=== PATIENT | female | born 1980 | race Caucasian/White ===

== ENCOUNTER → 2016-08-20 | Outpatient (CLI) | payer MEDICARE, MEDICAID ==
[~2016-08-20] MED LIST: /ONDA4TA OR; /SUCR1TA OR; ACET65TA OR; AMOX500C OR; ATIV0.5T OR; DELTASONE PO; DEPA1TAB3 PO; EFFE37.527 OR; FLUC10TA OR; HYDR25T PO; Methylprednisolone; PAXI10TA2 PO; PERC5TAB6 PO; PRED10TA2 OR; PRILOSEC PO; TRAZ50TA2 PO; VALI2TAB OR; VALT500T OR; VENTAER INH; VENTOLIN INH; ZOMI5TAB OR; ZONI100C2 PO; [UNRECOGNIZED DRUG - REMARK]; flagyl PO; protonix OR; trazadone OR
== END ==
LOC: M PAIN 13:20
PROVIDERS: ATTEND Nurse Practitioner Family
DX: Z09 Encounter for follow-up examination after completed treatment for conditions other than malignant neoplasm (principal); G89.21 Chronic pain due to trauma; G56.92 Unspecified mononeuropathy of left upper limb; F43.10 Post-traumatic stress disorder, unspecified; G40.919 Epilepsy, unspecified, intractable, without status epilepticus; F31.9 Bipolar disorder, unspecified; G43.909 Migraine, unspecified, not intractable, without status migrainosus; Z88.1 Allergy status to other antibiotic agents; Z88.5 Allergy status to narcotic agent; Z88.6 Allergy status to analgesic agent; Z91.09 Other allergy status, other than to drugs and biological substances; Z91.040 Latex allergy status; Z91.041 Radiographic dye allergy status; Z91.013 Allergy to seafood; Z79.891 Long term (current) use of opiate analgesic; Z79.899 Other long term (current) drug therapy

== ENCOUNTER → 2016-09-23 | Outpatient (CLI) | payer MEDICARE, MEDICAID ==
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
== END ==
LOC: M PAIN 10:20
PROVIDERS: ATTEND Anesthesiology
DX: Z09 Encounter for follow-up examination after completed treatment for conditions other than malignant neoplasm (principal); G90.512 Complex regional pain syndrome I of left upper limb; M79.2 Neuralgia and neuritis, unspecified; G89.29 Other chronic pain; M25.542 Pain in joints of left hand; F43.10 Post-traumatic stress disorder, unspecified; G40.919 Epilepsy, unspecified, intractable, without status epilepticus; F31.9 Bipolar disorder, unspecified; G43.909 Migraine, unspecified, not intractable, without status migrainosus; Z88.5 Allergy status to narcotic agent; Z88.1 Allergy status to other antibiotic agents; Z88.6 Allergy status to analgesic agent; Z91.040 Latex allergy status; Z88.8 Allergy status to other drugs, medicaments and biological substances; Z91.041 Radiographic dye allergy status; Z91.013 Allergy to seafood; Z79.891 Long term (current) use of opiate analgesic; Z79.899 Other long term (current) drug therapy; Z86.19 Personal history of other infectious and parasitic diseases; Z87.81 Personal history of (healed) traumatic fracture

== ENCOUNTER → 2016-10-28 | Outpatient (CLI) | payer MEDICARE, MEDICAID ==
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
== END | disposition home or self-care (01) ==
LOC: M PAIN 10:40
PROVIDERS: ATTEND Nurse Practitioner Family
DX: G89.29 Other chronic pain (principal); M79.2 Neuralgia and neuritis, unspecified; F43.10 Post-traumatic stress disorder, unspecified; F31.9 Bipolar disorder, unspecified; G43.909 Migraine, unspecified, not intractable, without status migrainosus; Z87.81 Personal history of (healed) traumatic fracture; Z79.899 Other long term (current) drug therapy; Z88.1 Allergy status to other antibiotic agents; Z88.5 Allergy status to narcotic agent; Z88.8 Allergy status to other drugs, medicaments and biological substances; Z91.040 Latex allergy status; Z91.041 Radiographic dye allergy status; Z91.013 Allergy to seafood

== ENCOUNTER → 2016-12-22 | Outpatient (CLI) | payer MEDICARE, MEDICAID ==
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
== END | disposition home or self-care (01) ==
LOC: M PAIN 11:00
PROVIDERS: ATTEND Nurse Practitioner Family
DX: G89.29 Other chronic pain (principal); M79.2 Neuralgia and neuritis, unspecified; F43.10 Post-traumatic stress disorder, unspecified; R56.9 Unspecified convulsions; F31.9 Bipolar disorder, unspecified; G43.909 Migraine, unspecified, not intractable, without status migrainosus; B02.9 Zoster without complications; Z79.899 Other long term (current) drug therapy; Z88.1 Allergy status to other antibiotic agents; Z88.5 Allergy status to narcotic agent; Z88.8 Allergy status to other drugs, medicaments and biological substances; Z91.040 Latex allergy status; Z91.041 Radiographic dye allergy status; Z91.013 Allergy to seafood

== ENCOUNTER → 2017-01-18 | Outpatient (REF) | payer MEDICARE, MEDICAID ==
[2017-01-18 19:03] LABS: ALBUMIN 3.6 GM/DL (3.2-5.2); ALBUMIN/GLOBULIN RATIO 1.24 (1.00-1.93); ALKALINE PHOSPHATASE 53 U/L (45-117); ALT/SGPT 17 U/L (12-78); ANION GAP 6 MEQ/L (8-16); AST/SGOT 12 U/L (15-37); BILIRUBIN,TOTAL 0.5 MG/DL (0.2-1.0); BLOOD UREA NITROGEN 14 MG/DL (7-18); CALCIUM LEVEL 8.5 MG/DL (8.5-10.1); CARBON DIOXIDE LEVEL 26 MEQ/L (21-32); CHLORIDE LEVEL 107 MEQ/L (98-107); CREATININE FOR GFR 0.84 MG/DL (0.55-1.02); FERRITIN 66 NG/ML (8-252); GLOMERULAR FILTRATION RATE > 60.0 (>60); GLUCOSE, FASTING 80 MG/DL (70-105); POTASSIUM SERUM 4.2 MEQ/L (3.5-5.1); SODIUM LEVEL 139 MEQ/L (136-145); TOTAL PROTEIN 6.5 GM/DL (6.4-8.2)
[2017-01-18 19:32] LABS: FOLATE 13.5 NG/ML (>5.4); VITAMIN B12 LEVEL 489 PG/ML (247-911)
[2017-01-18 19:48] LABS: BASO % 0.6 % (0.0-1.0); EOS # 0.1 K/mm3 (0.0-0.50); EOS % 2.1 % (0.0-3.0); LYMPH % 34.8 % (24.0-44.0); MEAN CORPUSCULAR HEMOGLOBIN 31.4 pg (27.0-33.0); MEAN CORPUSCULAR HGB CONC 33.4 g/dl (32.0-36.5); MEAN CORPUSCULAR VOLUME 94.1 fl (80.0-96.0); MONO # 0.5 K/mm3 (0.0-0.8); MONO % 8.9 % (0.0-5.0); NEUTROPHILS # 2.9 K/mm3 (1.8-7.7); NEUTROPHILS % 52.4 % (36.0-66.0); RED CELL DISTRIBUTION WIDTH 12.2 % (11.5-14.5); WHITE BLOOD COUNT 5.6 K/mm3 (4.0-10.0)
[2017-01-19 14:08] LABS: ALBUMIN 4.11 GM/DL (3.29-5.55); ALBUMIN % 63.3 % (55.8-66.1); GAMMA GLOBULIN % 14.7 % (11.1-18.8)
[2017-01-21 01:12] LABS: Lyme Disease IgG/IgM Antibodie <0.91 ISR (0.00-0.90); Lyme Disease IgM Ab Quantitati <0.80 index (0.00-0.79)
== END ==
LOC: M LABNEURO 17:40
PROVIDERS: ATTEND Physician Assistant Medical
DX: R53.83 Other fatigue (principal)

== ENCOUNTER 2020-12-28 20:49 | Emergency (ER) | payer MEDICARE, MEDICAID ==
[~2020-12-28] VITALS: Ht 162.6 cm; Wt 69.9 kg
[~2020-12-28 20:49] MED LIST changes: -/ONDA4TA OR; -/SUCR1TA OR; +HYDR-3363 PO; -HYDR25T PO; +ONDA-1 OR; +PAXI10TA12 PO; +PERC5TAB12 PO; -PERC5TAB6 PO; +SUCR1TAB56 OR; +ZONI100C17 PO; -ZONI100C2 PO
[2020-12-28] MEDS: NS 1,000 ML IV ONE (21:00)
[2020-12-28 21:18] LABS: BASO % 0.4 % (0.0-1.0); EOS # 0.1 10^3/uL (0.0-0.5); EOS % 1.4 % (0.0-3.0); HEMATOCRIT 35.1 % (36.0-47.0); HEMOGLOBIN 11.5 g/dl (12.0-15.5); LYMPH # 2.1 10^3/uL (1.5-5.0); LYMPH % 25.5 % (24.0-44.0); MEAN CORPUSCULAR HEMOGLOBIN 31.4 pg (27.0-33.0); MEAN CORPUSCULAR HGB CONC 32.8 g/dl (32.0-36.5); MEAN CORPUSCULAR VOLUME 95.9 fl (80.0-96.0); MONO # 0.9 10^3/uL (0.0-0.8); MONO % 10.7 % (2.0-8.0); NEUTROPHILS % 61.5 % (36.0-66.0); PLATELET COUNT, AUTOMATED 163 10^3/uL (150-450); RED BLOOD COUNT 3.66 10^6/uL (4.00-5.40); WHITE BLOOD COUNT 8.1 10^3/uL (4.0-10.0)
[2020-12-28] MEDS: VALPROATE SOD INJ 1,000 MG in D5W 50 ML IV ONE (21:29)
[2020-12-28 21:51] LABS: ALBUMIN 3.2 GM/DL (3.2-5.2); ALT/SGPT 16 U/L (12-78); BILIRUBIN,DIRECT 0.1 MG/DL (0.0-0.2); BILIRUBIN,TOTAL 0.4 MG/DL (0.2-1.0); BLOOD UREA NITROGEN 20 MG/DL (7-18); CALCIUM LEVEL 8.8 MG/DL (8.5-10.1); CARBON DIOXIDE LEVEL 26 MEQ/L (21-32); CHLORIDE LEVEL 108 MEQ/L (98-107); CREATININE FOR GFR 0.74 MG/DL (0.55-1.30); ETHYL ALCOHOL (ETHANOL) < 0.003 % (0.000-0.010); GLOMERULAR FILTRATION RATE > 60.0 (>60); GLUCOSE, FASTING 77 MG/DL (70-100); LIPASE 81 U/L (73-393); POTASSIUM SERUM 3.5 MEQ/L (3.5-5.1); SODIUM LEVEL 142 MEQ/L (136-145)
[2020-12-29] MEDS ORDERED: UNRESOLVED CLARIFICATION ENTRY XX SCH (00:01)
[2020-12-29 01:45] VITALS: BP 120/67
== END 2020-12-29 01:58 | disposition home or self-care (01) ==
LOC: M ED 20:49
DX: R56.9 Unspecified convulsions (principal); Z79.899 Other long term (current) drug therapy; Z88.8 Allergy status to other drugs, medicaments and biological substances; Z88.5 Allergy status to narcotic agent; Z91.040 Latex allergy status; Z86.69 Personal history of other diseases of the nervous system and sense organs

== ENCOUNTER 2021-11-26 20:34 | Inpatient (IN) | payer MEDICAID, MEDICARE ==
[~2021-11-26] VITALS: Ht 167.6 cm; Wt 69.6 kg
[~2021-11-26 20:34] MED LIST changes: -ZONI100C17 PO; +ZONI100C67 PO
[2021-11-26] MEDS ORDERED: ONDANSETRON 4MG/2ML VIAL IV ONE (22:00)
[2021-11-26] MEDS ORDERED: HYDROMORPHONE HCL 0.5 MG/ 0.5 ML SYRINGE (J1170 PER 1) IV PRN (22:00)
[2021-11-26 22:54] LABS: BASO # 0.1 10^3/uL (0.0-0.2); BASO % 0.6 % (0.0-1.0); EOS # 0.1 10^3/uL (0.0-0.5); EOS % 0.7 % (0.0-3.0); HEMATOCRIT 34.1 % (36.0-47.0); HEMOGLOBIN 11.2 g/dl (12.0-15.5); LYMPH # 1.7 10^3/uL (1.5-5.0); LYMPH % 19.7 % (24.0-44.0); MEAN CORPUSCULAR HEMOGLOBIN 31.3 pg (27.0-33.0); MEAN CORPUSCULAR HGB CONC 32.8 g/dl (32.0-36.5); MEAN CORPUSCULAR VOLUME 95.3 fl (80.0-96.0); MONO # 1.1 10^3/uL (0.0-0.8); NEUTROPHILS # 5.7 10^3/uL (1.5-8.5); NEUTROPHILS % 65.9 % (36.0-66.0); PLATELET COUNT, AUTOMATED 199 10^3/uL (150-450); RED BLOOD COUNT 3.58 10^6/uL (4.00-5.40); WHITE BLOOD COUNT 8.7 10^3/uL (4.0-10.0)
[2021-11-26 23:19] LABS: CK-MB VALUE MASS 1.4 NG/ML (<3.6); MB/CK RELATIVE INDEX 1.04 (< OR =4)
[2021-11-26 23:25] LABS: ALBUMIN 3.4 GM/DL (3.2-5.2); ALT/SGPT 20 U/L (12-78); BILIRUBIN,DIRECT 0.1 MG/DL (0.0-0.2); BILIRUBIN,TOTAL 0.3 MG/DL (0.2-1.0); BLOOD UREA NITROGEN 13 MG/DL (7-18); CARBON DIOXIDE LEVEL 29 MEQ/L (21-32); CHLORIDE LEVEL 108 MEQ/L (98-107); CREATININE FOR GFR 0.72 MG/DL (0.55-1.30); GLOMERULAR FILTRATION RATE > 60.0 (>58); GLUCOSE, FASTING 79 MG/DL (70-100); LIPASE 3841 U/L (73-393); POTASSIUM SERUM 4.2 MEQ/L (3.5-5.1); SODIUM LEVEL 143 MEQ/L (136-145); TOTAL PROTEIN 6.2 GM/DL (6.4-8.2)
[2021-11-26 23:46] LABS: CK-MB VALUE MASS < 1.0 NG/ML (<3.6); CPK CREATINE PHOSPHOKINASE 122 U/L (26-192); MB/CK RELATIVE INDEX 0.82 (< OR =4)
[2021-11-26] MEDS ORDERED: NS 1,000 ML IV ONE (23:55)
[2021-11-26] MEDS ORDERED: PROMETHAZINE 25MG/ML 1ML VIAL IV ONE (23:55)
[2021-11-27 00:28] LABS: ETHYL ALCOHOL (ETHANOL) < 0.003 % (0.000-0.010)
[2021-11-27 01:21] LABS: RSV AMPLIFICATION NEGATIVE (NEGATIVE)
[2021-11-27] MEDS ORDERED: LR 1,000 ML IV ONE (03:05)
[2021-11-27] MEDS: LR 1,000 ML IV SCH ×5 (03:05→19:49)
[2021-11-27] MEDS ORDERED: TRAZ-189 PO (03:43)
[2021-11-27] MEDS ORDERED: IPRA0.00 INH (03:43)
[2021-11-27] MEDS ORDERED: GALC120S SC (03:43)
[2021-11-27] MEDS ORDERED: ATIV1TAB10 PO (03:43)
[2021-11-27] MEDS ORDERED: ALBU8.5H INH (03:43)
[2021-11-27] MEDS ORDERED: SYMB80INH INH (03:43)
[2021-11-27] MEDS ORDERED: RIZA5TAB2 PO (03:43)
[2021-11-27] MEDS ORDERED: SUMA6INJ25 SC (03:43)
[2021-11-27] MEDS ORDERED: PANT-23 PO (03:43)
[2021-11-27] MEDS ORDERED: DIVA500T9 PO (03:43)
[2021-11-27] MEDS ORDERED: ONDA-195 PO (03:43)
[2021-11-27] MEDS ORDERED: IPRATROPIUM 0.5MG/ALBUTEROL 2.5MG INH SOL UD 3ML (DUONEB) INH PRN (03:45)
[2021-11-27] MEDS ORDERED: ALBUTEROL 90 MCG/ACT 8GM HFA INHALER INH PRN (03:45)
[2021-11-27] MEDS ORDERED: HOME MED LIST COMPLETE! XX SCH (03:45)
[2021-11-27 04:54] LABS: HEMATOCRIT 31.2 % (36.0-47.0); HEMOGLOBIN 10.3 g/dl (12.0-15.5); MEAN CORPUSCULAR HEMOGLOBIN 32.2 pg (27.0-33.0); MEAN CORPUSCULAR VOLUME 97.5 fl (80.0-96.0); PLATELET COUNT, AUTOMATED 160 10^3/uL (150-450); WHITE BLOOD COUNT 6.3 10^3/uL (4.0-10.0)
[2021-11-27 05:47] LABS: BLOOD UREA NITROGEN 11 MG/DL (7-18); CALCIUM LEVEL 8.3 MG/DL (8.5-10.1); CARBON DIOXIDE LEVEL 31 MEQ/L (21-32); CHLORIDE LEVEL 109 MEQ/L (98-107); CHOLESTEROL LEVEL 124 MG/DL (<200); CHOLESTEROL RISK RATIO 1.907 (<5); CREATININE FOR GFR 0.71 MG/DL (0.55-1.30); GLOMERULAR FILTRATION RATE > 60.0 (>58); GLUCOSE, FASTING 77 MG/DL (70-100); HDL CHOLESTEROL 65 MG/DL (>40); LDL CHOLESTEROL 52 MG/DL (<100); NON-HDL-C 59 MG/DL; POTASSIUM SERUM 3.6 MEQ/L (3.5-5.1); SODIUM LEVEL 144 MEQ/L (136-145); TRIGLYCERIDES LEVEL 37 MG/DL (<150); VALPROIC ACID (DEPAKOTE) 67.8 UG/ML (50.0-100.0)
[2021-11-27] MEDS: HYDROMORPHONE HCL 0.5 MG/ 0.5 ML SYRINGE (J1170 PER 1) IV PRN ×3 (07:04→17:16)
[2021-11-27] MEDS: SYMBICORT 80/4.5MCG INHALER 6GM INH SCH ×2 (08:16→20:00)
[2021-11-27] MEDS: ENOXAPARIN 40MG/0.4ML SYRINGE (J1650 PER 10MG) SC SCH (09:29)
[2021-11-27] MEDS: PANTOPRAZOLE 40MG VIAL IV SCH (09:29)
[2021-11-27] MEDS: VALPROATE SOD INJ 500 MG in D5W 50 ML IV SCH ×2 (09:29→23:03)
[2021-11-27] MEDS: ONDANSETRON 4MG/2ML VIAL IV PRN ×2 (10:20→16:45)
[2021-11-27] MEDS: levETIRAcetam INJection 1,000 MG in D5W 100 ML IV SCH ×2 (10:31→21:22)
[2021-11-27] MEDS: PROMETHAZINE 25MG/ML 1ML VIAL IV PRN (12:27)
[2021-11-27] MEDS ORDERED: HALOPERIDOL 5MG/ML VIAL (J1630 PER 1) IV ONE (15:55)
[2021-11-27 16:10] VITALS: BP 121/68
[2021-11-27] MEDS: SUMAtriptan SUCCINATE 6MG/0.5ML VIAL SC PRN (17:10)
[2021-11-27 22:00] VITALS: BP 120/70
[2021-11-28] MEDS: LR 1,000 ML IV SCH ×7 (00:58→23:05)
[2021-11-28] MEDS: ONDANSETRON 4MG/2ML VIAL IV PRN ×3 (02:46→21:36)
[2021-11-28] MEDS: HYDROMORPHONE HCL 0.5 MG/ 0.5 ML SYRINGE (J1170 PER 1) IV PRN ×2 (04:25→06:57)
[2021-11-28 06:00] VITALS: BP 118/60
[2021-11-28] MEDS: SYMBICORT 80/4.5MCG INHALER 6GM INH SCH ×2 (08:00→19:40)
[2021-11-28] MEDS: PANTOPRAZOLE 40MG VIAL IV SCH (08:51)
[2021-11-28] MEDS: VALPROATE SOD INJ 500 MG in D5W 50 ML IV SCH ×2 (09:29→21:53)
[2021-11-28] MEDS: levETIRAcetam INJection 1,000 MG in D5W 100 ML IV SCH ×2 (10:51→21:34)
[2021-11-28] MEDS: SUMAtriptan SUCCINATE 6MG/0.5ML VIAL SC PRN ×2 (10:51→21:34)
[2021-11-28] MEDS: ENOXAPARIN 40MG/0.4ML SYRINGE (J1650 PER 10MG) SC SCH (10:51)
[2021-11-28] MEDS: LORazepam 2 MG/ML VIAL IV PRN ×2 (11:46→21:36)
[2021-11-28 14:00] VITALS: BP 127/70
[2021-11-28 22:00] VITALS: BP 119/60
[2021-11-29] MEDS: LR 1,000 ML IV SCH (04:42)
[2021-11-29 06:00] VITALS: BP 121/63
[2021-11-29 06:45] LABS: BASO % 0.6 % (0.0-1.0); EOS # 0.1 10^3/uL (0.0-0.5); EOS % 0.9 % (0.0-3.0); HEMATOCRIT 33.6 % (36.0-47.0); HEMOGLOBIN 11.3 g/dl (12.0-15.5); LYMPH # 3.1 10^3/uL (1.5-5.0); LYMPH % 46.3 % (24.0-44.0); MEAN CORPUSCULAR HEMOGLOBIN 32.1 pg (27.0-33.0); MEAN CORPUSCULAR HGB CONC 33.6 g/dl (32.0-36.5); MEAN CORPUSCULAR VOLUME 95.5 fl (80.0-96.0); MONO # 0.9 10^3/uL (0.0-0.8); MONO % 13.3 % (2.0-8.0); NEUTROPHILS # 2.6 10^3/uL (1.5-8.5); NEUTROPHILS % 38.6 % (36.0-66.0); PLATELET COUNT, AUTOMATED 176 10^3/uL (150-450); RED BLOOD COUNT 3.52 10^6/uL (4.00-5.40); WHITE BLOOD COUNT 6.8 10^3/uL (4.0-10.0)
[2021-11-29 07:29] LABS: ALBUMIN 2.8 GM/DL (3.2-5.2); ALT/SGPT 28 U/L (12-78); BILIRUBIN,TOTAL 0.5 MG/DL (0.2-1.0); BLOOD UREA NITROGEN 7 MG/DL (7-18); CALCIUM LEVEL 9.1 MG/DL (8.5-10.1); CARBON DIOXIDE LEVEL 30 MEQ/L (21-32); CHLORIDE LEVEL 103 MEQ/L (98-107); CREATININE FOR GFR 0.78 MG/DL (0.55-1.30); GLOMERULAR FILTRATION RATE > 60.0 (>58); GLUCOSE, FASTING 39 MG/DL (70-100); LIPASE 77 U/L (73-393); POTASSIUM SERUM 3.8 MEQ/L (3.5-5.1); SODIUM LEVEL 141 MEQ/L (136-145); TOTAL PROTEIN 5.7 GM/DL (6.4-8.2)
[2021-11-29] MEDS: SYMBICORT 80/4.5MCG INHALER 6GM INH SCH ×2 (07:31→19:31)
[2021-11-29] MEDS ORDERED: GLUCOSE 4GM CHEW TABLET PO PRN (07:35)
[2021-11-29] MEDS ORDERED: GLUCAGON INJ 1MG VIAL SC PRN (07:35)
[2021-11-29] MEDS ORDERED: DEXTROSE 50% 50 ML SYRINGE IV PRN (07:35)
[2021-11-29] MEDS: D5W/0.9% SODIUM CHLORIDE 1,000 ML IV SCH ×2 (07:47→18:51)
[2021-11-29] MEDS: levETIRAcetam INJection 1,000 MG in D5W 100 ML IV SCH ×2 (09:00→22:36)
[2021-11-29] MEDS: ENOXAPARIN 40MG/0.4ML SYRINGE (J1650 PER 10MG) SC SCH (10:09)
[2021-11-29] MEDS: PANTOPRAZOLE 40MG VIAL IV SCH (10:09)
[2021-11-29] MEDS: VALPROATE SOD INJ 500 MG in D5W 50 ML IV SCH ×2 (11:30→21:24)
[2021-11-29] MEDS: HYDROMORPHONE HCL 0.5 MG/ 0.5 ML SYRINGE (J1170 PER 1) IV PRN ×2 (11:31→20:14)
[2021-11-29 14:00] VITALS: BP 125/76
[2021-11-29] MEDS: ONDANSETRON 4MG/2ML VIAL IV PRN ×2 (14:45→20:12)
[2021-11-29] MEDS: LORazepam 2 MG/ML VIAL IV PRN (14:58)
[2021-11-29 18:21] LABS: APPEARANCE, URINE CLEAR (CLEAR); BACTERIA, URINE AUTO 1+ (NEGATIVE); BILIRUBIN, URINE AUTO NEGATIVE (NEGATIVE); BLOOD, URINE BLOOD NEGATIVE (NEGATIVE); COLOR, URINE STRAW (YELLOW); GLUCOSE, URINE (UA) AUTO NEGATIVE (NEGATIVE); KETONE, URINE AUTO NEGATIVE (NEGATIVE); LEUKOCYTE ESTERASE, URINE AUTO NEGATIVE (NEGATIVE); NITRITE, URINE AUTO NEGATIVE (NEGATIVE); PROTEIN, URINE AUTO NEGATIVE (NEGATIVE); RBC, URINE AUTO 1 /HPF (0-3); SPECIFIC GRAVITY URINE AUTO 1.006 (1.002-1.035); SQUAMOUS EPITHELIAL CELL UR AU 0 /HPF (0-6); WBC, URINE AUTO 0 /HPF (0-3)
[2021-11-29 20:47] LABS: CHOLESTEROL RISK RATIO 2.516 (<5)
[2021-11-29 20:53] LABS: CK-MB VALUE MASS < 1.0 NG/ML (<3.6); CPK CREATINE PHOSPHOKINASE 76 U/L (26-192); MB/CK RELATIVE INDEX 1.32 (< OR =4)
[2021-11-29] MEDS ORDERED: GI COCKTAIL 50ML BTL(HYOSCYAMINE/MAALOX/LIDOCAINE VISCOUS)(1:3:1) PO ONE (21:00)
[2021-11-29 22:00] VITALS: BP 128/77
[2021-11-29] MEDS: LIDOCAINE 5% (LIDODERM) PATCH TD SCH (22:37)
[2021-11-29] MEDS ORDERED: ENOXAPARIN 80MG/0.8ML SYRINGE (J1650 PER 10MG) SC ONE (23:00)
[2021-11-30 04:37] VITALS: BP 122/75
[2021-11-30] MEDS: HYDROMORPHONE HCL 0.5 MG/ 0.5 ML SYRINGE (J1170 PER 1) IV PRN ×3 (04:46→15:23)
[2021-11-30 06:49] LABS: BASO % 0.9 % (0.0-1.0); EOS # 0.1 10^3/uL (0.0-0.5); EOS % 1.7 % (0.0-3.0); HEMATOCRIT 31.1 % (36.0-47.0); HEMOGLOBIN 10.5 g/dl (12.0-15.5); LYMPH # 2.1 10^3/uL (1.5-5.0); LYMPH % 44.6 % (24.0-44.0); MEAN CORPUSCULAR HGB CONC 33.8 g/dl (32.0-36.5); MEAN CORPUSCULAR VOLUME 94.8 fl (80.0-96.0); MONO # 0.9 10^3/uL (0.0-0.8); MONO % 19.4 % (2.0-8.0); NEUTROPHILS # 1.5 10^3/uL (1.5-8.5); NEUTROPHILS % 33.2 % (36.0-66.0); PLATELET COUNT, AUTOMATED 155 10^3/uL (150-450); RED BLOOD COUNT 3.28 10^6/uL (4.00-5.40); WHITE BLOOD COUNT 4.6 10^3/uL (4.0-10.0)
[2021-11-30 07:13] LABS: ALBUMIN 2.8 GM/DL (3.2-5.2); ALT/SGPT 25 U/L (12-78); BILIRUBIN,TOTAL 0.6 MG/DL (0.2-1.0); BLOOD UREA NITROGEN 6 MG/DL (7-18); CALCIUM LEVEL 8.3 MG/DL (8.5-10.1); CARBON DIOXIDE LEVEL 34 MEQ/L (21-32); CHLORIDE LEVEL 108 MEQ/L (98-107); GLOMERULAR FILTRATION RATE > 60.0 (>58); GLUCOSE, FASTING 99 MG/DL (70-100); LIPASE 72 U/L (73-393); POTASSIUM SERUM 3.5 MEQ/L (3.5-5.1); SODIUM LEVEL 144 MEQ/L (136-145); TOTAL PROTEIN 5.2 GM/DL (6.4-8.2)
[2021-11-30] MEDS: SYMBICORT 80/4.5MCG INHALER 6GM INH SCH ×2 (07:24→19:21)
[2021-11-30] MEDS: LORazepam 2 MG/ML VIAL IV PRN (08:33)
[2021-11-30] MEDS: ONDANSETRON 4MG/2ML VIAL IV PRN ×2 (08:34→15:22)
[2021-11-30] MEDS: **NOTE PATIENT COMMENT** MISC XX SCH (09:00)
[2021-11-30] MEDS: D5W/0.9% SODIUM CHLORIDE 1,000 ML IV SCH ×3 (10:03→23:53)
[2021-11-30] MEDS: PANTOPRAZOLE 40MG VIAL IV SCH (10:05)
[2021-11-30] MEDS: PROMETHAZINE 25MG/ML 1ML VIAL IV PRN (10:05)
[2021-11-30] MEDS: ENOXAPARIN 40MG/0.4ML SYRINGE (J1650 PER 10MG) SC SCH (10:06)
[2021-11-30] MEDS: levETIRAcetam INJection 1,000 MG in D5W 100 ML IV SCH ×2 (10:07→21:41)
[2021-11-30] MEDS: VALPROATE SOD INJ 500 MG in D5W 50 ML IV SCH ×2 (10:58→20:24)
[2021-11-30 14:00] VITALS: BP 118/82
[2021-11-30] MEDS ORDERED: HALOPERIDOL 5MG/ML VIAL (J1630 PER 1) IM ONE (17:50)
[2021-11-30] MEDS ORDERED: CAPSAICIN 0.025% CR 60 GM TOP PRN (19:00)
[2021-11-30] MEDS: METOCLOPRAMIDE INJ 10MG/2ML VIAL (J2765 PER 1) IV SCH (20:19)
[2021-11-30] MEDS: LIDOCAINE 5% (LIDODERM) PATCH TD SCH (20:24)
[2021-11-30] MEDS ORDERED: LORazepam 2 MG/ML VIAL IV SCH (21:00)
[2021-11-30 22:00] VITALS: BP 121/80
[2021-12-01 05:52] LABS: BASO % 0.4 % (0.0-1.0); EOS # 0.1 10^3/uL (0.0-0.5); EOS % 2.1 % (0.0-3.0); HEMATOCRIT 32.2 % (36.0-47.0); HEMOGLOBIN 10.7 g/dl (12.0-15.5); LYMPH # 1.8 10^3/uL (1.5-5.0); LYMPH % 37.2 % (24.0-44.0); MEAN CORPUSCULAR HEMOGLOBIN 31.8 pg (27.0-33.0); MEAN CORPUSCULAR HGB CONC 33.2 g/dl (32.0-36.5); MEAN CORPUSCULAR VOLUME 95.8 fl (80.0-96.0); MONO # 0.8 10^3/uL (0.0-0.8); MONO % 17.7 % (2.0-8.0); NEUTROPHILS % 42.4 % (36.0-66.0); PLATELET COUNT, AUTOMATED 151 10^3/uL (150-450); RED BLOOD COUNT 3.36 10^6/uL (4.00-5.40); WHITE BLOOD COUNT 4.7 10^3/uL (4.0-10.0)
[2021-12-01 06:00] VITALS: BP 120/76
[2021-12-01 06:16] LABS: ALBUMIN 2.8 GM/DL (3.2-5.2); ALT/SGPT 35 U/L (12-78); BILIRUBIN,TOTAL 0.6 MG/DL (0.2-1.0); BLOOD UREA NITROGEN 4 MG/DL (7-18); CALCIUM LEVEL 8.5 MG/DL (8.5-10.1); CARBON DIOXIDE LEVEL 34 MEQ/L (21-32); CHLORIDE LEVEL 107 MEQ/L (98-107); CREATININE FOR GFR 0.89 MG/DL (0.55-1.30); GLOMERULAR FILTRATION RATE > 60.0 (>58); GLUCOSE, FASTING 96 MG/DL (70-100); LIPASE 70 U/L (73-393); POTASSIUM SERUM 3.8 MEQ/L (3.5-5.1); SODIUM LEVEL 142 MEQ/L (136-145); TOTAL PROTEIN 5.5 GM/DL (6.4-8.2)
[2021-12-01] MEDS: SYMBICORT 80/4.5MCG INHALER 6GM INH SCH ×2 (07:50→19:18)
[2021-12-01] MEDS: ENOXAPARIN 40MG/0.4ML SYRINGE (J1650 PER 10MG) SC SCH (09:24)
[2021-12-01] MEDS: PANTOPRAZOLE 40MG TAB (PROTONIX) PO SCH (09:24)
[2021-12-01] MEDS: levETIRAcetam 250MG TABLET (KEPPRA) PO SCH ×2 (09:24→21:13)
[2021-12-01] MEDS: DIVALPROEX 500 MG TAB PO SCH ×2 (09:24→21:13)
[2021-12-01] MEDS: METOCLOPRAMIDE INJ 10MG/2ML VIAL (J2765 PER 1) IV SCH ×3 (09:25→21:13)
[2021-12-01] MEDS: ZONISAMIDE 100 MG CAP (ZONEGRAN) PO SCH ×2 (09:25→21:13)
[2021-12-01] MEDS: LORazepam 0.5 MG TAB PO PRN ×2 (09:25→21:14)
[2021-12-01] MEDS: **NOTE PATIENT COMMENT** MISC XX SCH (09:47)
[2021-12-01 14:00] VITALS: BP 130/76
[2021-12-01] MEDS: D5W/0.9% SODIUM CHLORIDE 1,000 ML IV SCH ×2 (14:10→19:35)
[2021-12-01] MEDS ORDERED: HYDROMORPHONE HCL 0.5 MG/ 0.5 ML SYRINGE (J1170 PER 1) IV PRN (14:10)
[2021-12-01] MEDS ORDERED: traZODone 100 MG TAB PO SCH (21:00)
[2021-12-01] MEDS: LIDOCAINE 5% (LIDODERM) PATCH TD SCH (21:13)
[2021-12-01 22:00] VITALS: BP 104/72
[2021-12-02] MEDS: D5W/0.9% SODIUM CHLORIDE 1,000 ML IV SCH (00:23)
[2021-12-02 06:00] VITALS: BP 107/71
[2021-12-02] MEDS: SYMBICORT 80/4.5MCG INHALER 6GM INH SCH (08:57)
[2021-12-02] MEDS: METOCLOPRAMIDE INJ 10MG/2ML VIAL (J2765 PER 1) IV SCH (10:28)
[2021-12-02] MEDS: PANTOPRAZOLE 40MG TAB (PROTONIX) PO SCH (10:28)
[2021-12-02] MEDS: DIVALPROEX 500 MG TAB PO SCH (10:29)
[2021-12-02] MEDS: **NOTE PATIENT COMMENT** MISC XX SCH (10:29)
[2021-12-02] MEDS: ENOXAPARIN 40MG/0.4ML SYRINGE (J1650 PER 10MG) SC SCH (10:29)
[2021-12-02] MEDS: levETIRAcetam 250MG TABLET (KEPPRA) PO SCH (10:29)
[2021-12-02] MEDS: ZONISAMIDE 100 MG CAP (ZONEGRAN) PO SCH (10:29)
[2021-12-02] MEDS ORDERED: LEVE10003 PO (11:17)
[2021-12-02] MEDS ORDERED: DEPA1TAB3 PO (11:17)
[2021-12-02] MEDS ORDERED: ONDA4TAB6 PO (11:17)
== END 2021-12-02 13:00 | disposition home or self-care (01) | DRG 440 ==
LOC: M ED 20:34 → M ED INP 11-27 02:49 → ENRESERV 11-27 15:40 → M 4MAIN 11-27 16:10 → M MSPAV 11-27 16:11
PROVIDERS: ADMIT Family Medicine; ATTEND Internal Medicine
DX: K85.90 Acute pancreatitis without necrosis or infection, unspecified (principal); G40.909 Epilepsy, unspecified, not intractable, without status epilepticus; G43.909 Migraine, unspecified, not intractable, without status migrainosus; Z85.3 Personal history of malignant neoplasm of breast; F31.9 Bipolar disorder, unspecified; F90.9 Attention-deficit hyperactivity disorder, unspecified type; F41.9 Anxiety disorder, unspecified; G47.00 Insomnia, unspecified; K21.9 Gastro-esophageal reflux disease without esophagitis; J45.909 Unspecified asthma, uncomplicated; R00.1 Bradycardia, unspecified; Z20.822 Contact with and (suspected) exposure to COVID-19; Z79.899 Other long term (current) drug therapy; Z88.3 Allergy status to other anti-infective agents; Z88.5 Allergy status to narcotic agent; Z88.8 Allergy status to other drugs, medicaments and biological substances; Z91.040 Latex allergy status; R07.89 Other chest pain; E16.2 Hypoglycemia, unspecified

== ENCOUNTER → 2023-02-03 | Outpatient (CLI) | payer MEDICARE, MEDICAID ==
[~2023-02-03] MED LIST changes: +ALBU8.5H INH; +ATIV1TAB10 PO; +DIVA500T9 PO; +GALC120S SC; +IPRA0.00 INH; +LEVE10003 PO; +ONDA-195 PO; +ONDA4TAB6 PO; +PANT-23 PO; -PAXI10TA12 PO; +PAXI10TA13 PO; +RIZA5TAB2 PO; +SUMA6INJ25 SC; +SYMB80INH INH; +TRAZ-189 PO
== END ==
LOC: M RAD 08:24
PROVIDERS: ATTEND Physician Assistant Surgical
DX: S92.314A Nondisplaced fracture of first metatarsal bone, right foot, initial encounter for closed fracture (principal)

== ENCOUNTER 2024-11-09 17:41 | Emergency (ER) | payer MEDICARE, MEDICAID ==
[~2024-11-09 17:41] MED LIST changes: +ONDA-282 PO; -ONDA4TAB6 PO; -SUMA6INJ25 SC; +SUMA6PEN5 SC
[2024-11-09 17:55] LABS: ABG O2 SATURATION 97.7 % (95.0-99.0); ABG PARTIAL PRESSURE CO2 44.4 mmHg (35.0-45.0); ABG PARTIAL PRESSURE O2 109.3 mmHg (75.0-100.0); ABG TOTAL CO2 24.4 MMOL/L (22.0-29.0); ABG pH (ARTERIAL) 7.332 UNITS (7.350-7.450)
[2024-11-09] MEDS: NS 500 ML IV ONE (17:57)
[2024-11-09 18:07] LABS: BASO # 0.1 10^3/uL (0.0-0.2); BASO % 0.7 % (0.0-1.0); EOS # 0.2 10^3/uL (0.0-0.5); EOS % 1.3 % (0.0-3.0); HEMATOCRIT 41.2 % (36.0-47.0); HEMOGLOBIN 13.8 g/dl (12.0-15.5); LYMPH # 1.7 10^3/uL (1.5-5.0); LYMPH % 15.5 % (24.0-44.0); MEAN CORPUSCULAR HEMOGLOBIN 29.7 pg (27.0-33.0); MEAN CORPUSCULAR HGB CONC 33.5 g/dl (32.0-36.5); MEAN CORPUSCULAR VOLUME 88.6 fl (80.0-96.0); MONO # 0.8 10^3/uL (0.0-0.8); MONO % 7.3 % (2.0-8.0); NEUTROPHILS # 8.3 10^3/uL (1.5-8.5); NEUTROPHILS % 74.8 % (36.0-66.0); PLATELET COUNT, AUTOMATED 284 10^3/uL (150-450); RED BLOOD COUNT 4.65 10^6/uL (4.00-5.40); WHITE BLOOD COUNT 11.1 10^3/uL (4.0-10.0)
[2024-11-09 18:31] LABS: ETHYL ALCOHOL (ETHANOL) < 0.003 % (0.000-0.010)
[2024-11-09 18:32] LABS: SALICYLATE LEVEL < 3.0 MG/DL (<30)
[2024-11-09 18:34] LABS: THYROID STIMULATING HORMONE 1.254 uIU/ML (0.55-4.78)
[2024-11-09 18:35] LABS: ALBUMIN 4.5 G/DL (3.2-5.2); ALKALINE PHOSPHATASE 82 U/L (35-104); ALT/SGPT 19 U/L (7.0-40); AST/SGOT 29 U/L (<34); BILIRUBIN,DIRECT 0.1 MG/DL (<0.4); BILIRUBIN,TOTAL 0.6 MG/DL (0.3-1.2); BLOOD UREA NITROGEN 18 MG/DL (9-23); CARBON DIOXIDE LEVEL 26 MMOL/L (20-31); CHLORIDE LEVEL 104 MMOL/L (98-107); CREATININE FOR GFR 0.92 MG/DL (0.55-1.30); GLOMERULAR FILTRATION RATE 79.2 (>58); GLUCOSE, FASTING 107 MG/DL (60-100); LIPASE 39 U/L (12-53); POTASSIUM SERUM 5.5 MMOL/L (3.5-5.1); SODIUM LEVEL 142 MMOL/L (136-145); TOTAL PROTEIN 7.2 G/DL (5.7-8.2)
[2024-11-09 18:50] LABS: VALPROIC ACID (DEPAKOTE) < 3.0 UG/ML (50.0-100.0)
[2024-11-09 19:16] LABS: PROLACTIN 81.19 NG/ML
[2024-11-09 19:49] LABS: AMPHETAMINES LEVEL URINE NEGATIVE (NEGATIVE); BARBITURATES URINE NEGATIVE (NEGATIVE); BENZODIAZEPINES URINE NEGATIVE (NEGATIVE); COCAINE METABOLITE URINE NEGATIVE (NEGATIVE); METHADONE URINE NEGATIVE (NEGATIVE); OPIATES URINE NEGATIVE (NEGATIVE); PHENCYCLIDINE URINE NEGATIVE (NEGATIVE)
[2024-11-09 19:50] LABS: CANNABINOIDS URINE POSITIVE (NEGATIVE)
[2024-11-09] MEDS: HALOPERIDOL LACTATE 5MG/ML VIAL IV ONE (20:09)
[2024-11-09] MEDS: MAG SULF 1GM/100ML (MAG RUN) 1 GM in IV 1 EA IV ONE (20:09)
[2024-11-09] MEDS: KETOROLAC 30 MG/ML 1ML VIAL IV ONE (20:09)
[2024-11-09] MEDS: levETIRAcetam INJection 1,000 MG in IV 1 EA IV ONE (21:20)
[2024-11-09] MEDS: ZONISAMIDE 100 MG CAP (ZONEGRAN) PO STA (21:20)
[2024-11-09 23:12] VITALS: BP 129/72; TEMP 98.2; O2SAT 98
== END 2024-11-09 23:15 | disposition home or self-care (01) ==
LOC: EDBD 17:41 → M ED 17:41
DX: G40.89 Other seizures (principal); K21.9 Gastro-esophageal reflux disease without esophagitis; F41.9 Anxiety disorder, unspecified; F31.9 Bipolar disorder, unspecified; Z88.5 Allergy status to narcotic agent; Z88.6 Allergy status to analgesic agent; Z91.040 Latex allergy status; Z79.51 Long term (current) use of inhaled steroids; Z79.899 Other long term (current) drug therapy
CPT/HCPCS: 36600; 70450; 71045; 80047; 80048; 80076; 80143; 80164; 80177; 80307; 82077; 82803; 83605; 83690; 84132; 84146; 84443; 85025; 93005; 93041; 94760; 96361; 96365; 96366; 96375; 99285; J1100; J1630; J1885; J1953; J3475